=== PATIENT | female | born 1950 | race Caucasian/White ===

== ENCOUNTER 2016-06-17 11:52 | Day surgery (SDC) | payer OTHER ==
--- NOTE | ~2016-06-17 | EGD ---
EGD REPORT [facility] [address] [address] NAME: MELL RETANA : [birth year] STATUS : [facility]#: [id number] AGE: 66 ADM/REG DATE : 06/17/16 MR#: [id number] REPORT SERV DATE: 06/17/16 DICTATED BY: LEONEL QUILES DATE: 06/17/16 REPORT STATUS : Draft TRANSCRIBED BY: [facility] DATE: 06/17/16 Pulmonology Patient Name: Mell Retana Procedure Date: 06/17/2016 3:36 PM Date of : 1950 Attending MD: PARTH QUILES MD Procedure Date No Time: 06/17/2016 Procedure: Rigid Bronchoscopy Indications: Stent removal Providers: PARTH QUILES MD Referring MD: ISAURA GRAVES MD Medicines: Lidocaine 2% 20 mL Complications: No immediate complications Procedure: Pre-Anesthesia Assessment: - ASA Grade Assessment: IV - A patient with severe systemic disease that is a constant threat to life. - A History and Physical has been performed. Patient meds and allergies have been reviewed. The risks and benefits of the procedure and the sedation options and risks were discussed with the patient. All questions were answered and informed consent was obtained. Patient identification and proposed procedure were verified prior to the procedure by the physician and the nurse in the pre-procedure area in the procedure room. Mental Status Examination: alert and oriented. Airway Examination: normal oropharyngeal airway. Respiratory Examination: clear to auscultation. CV Examination: normal and RRR, no murmurs, no S3 or S4. ASA Grade Assessment: III - A patient with severe systemic disease. After reviewing the risks and benefits, the patient was deemed in satisfactory condition to undergo the procedure. The anesthesia plan was to use general anesthesia. Immediately prior to administration of medications, the patient was re-assessed for adequacy to receive sedatives. The heart rate, respiratory rate, oxygen saturations, blood pressure, adequacy of pulmonary ventilation, and response to care were monitored throughout the procedure. The physical status of the patient was re-assessed after the procedure. After obtaining informed consent, the Bronchoscope was introduced through the mouth, via the endotracheal tube (the patient was intubated for the procedure) and advanced to the tracheobronchial tree. The procedure was accomplished without difficulty. The patient tolerated the procedure well. The procedure was EGD REPORT [address] [address] NAME: MELL RETANA : [birth year] STATUS : REG [facility]#: [id number] AGE: 66 ADM/REG DATE : 06/17/16 MR#: [id number] REPORT SERV DATE: 06/17/16 DICTATED BY: LEONEL QUILES DATE: 06/17/16 REPORT STATUS : Draft TRANSCRIBED BY: [employer] DATE: 06/17/16 accomplished with ease. Findings: The endotracheal tube is in good position. The visualized portion of the trachea is of normal caliber. The minerva is sharp. The tracheobronchial tree was examined to at least the first subsegmental level. Bronchial mucosa and anatomy are normal; there are no endobronchial lesions, and no secretions. Stent is visualized in the proximal portion of the LMS and distal trachea. The 12 mm Rigid bronchoscope was then intubated in the usual atraumatic fashion. Using the white handle forcep, the hybrid stent was extracted. Residual non obstructive granulation was seen. Impression: LMS stent removed Recommendation: - Patient can discontinue mandatory nebulizers and use them PRN - Chest X-ray post-procedure. Attending Participation: I personally performed the entire procedure. PARTH QUILES MD 06/17/2016 4:00 PM This report has been signed electronically. Number of Addenda: 0 Note Initiated On: 06/17/2016 3:36 PM [address] [address]
--- NOTE | ~2016-06-17 | CN ---
Consultation Report [facility] [id number] [place]. [address] NAME: MELL RETANA : [birth year] STATUS : [facility] PAT#: [id number] AGE: 66 ADM/REG DATE : 06/17/16 MR#: [id number] REPORT SERV DATE: 06/17/16 DICTATED BY: CHARLENE QUILES DATE: 06/17/16 REPORT STATUS : Draft TRANSCRIBED BY: [employer] DATE: 06/17/16 CONSULTATION DATE OF CONSULTATION: Dear Dr. Sam Hawkins: Thank you for requesting my opinion regarding evaluation and management of Ms Mell Retana's left-sided stent and lung cancer. Ms Retana is an extremely pleasant, elderly female with a significant past medical history of SLL, CLL, and lung cancer status post chemo and radiation therapy, who represented to [facility] for surveillance imaging. CT imaging on 06/05/2016 confirmed significant interval decrease in tumor volume within the mediastinum and medial aspect of the superior segment of the left lower lobe when correlated with prior examination. Left-sided mainstem bronchus is in unchanged position. The patient states that her shortness of breath has significantly improved. She has been able to tolerate the breathing treatments and is anxious for stent removal. She denies any fevers, chills, night sweats, nausea, vomiting, diarrhea, or constipation. REVIEW OF SYSTEMS: A detailed 14-point review of systems was completed. Pertinent positives and negatives are listed above. PAST MEDICAL HISTORY: 1. COPD. 2. Depression. 3. Diabetes. 4. GERD. 5. Hyperlipidemia. 6. Hypertension. 7. Osteoarthritis. 8. Parkinson disease. 9. Pneumonia. PAST SURGICAL HISTORY: 1. Colonoscopy. 2. Excision of melanoma on the abdominal wall. 3. Metastasectomy. SOCIAL HISTORY: The patient is single and disabled. She quit smoking 14 years ago, but has smoked one pack per day for 30 years. She denies any history of alcohol or illicit drug abuse. FAMILY HISTORY: Hypertension, osteoarthritis, Parkinson's, and cancer. Consultation Report [place] [id number] [place]. [address] NAME: MELL RETANA : [birth year] STATUS : [facility] PAT#: [id number] AGE: 66 ADM/REG DATE : 06/17/16 MR#: [id number] REPORT SERV DATE: 06/17/16 DICTATED BY: ETTAPARTHAARON DATE: 06/17/16 REPORT STATUS : Draft TRANSCRIBED BY: AINSLEY DATE: 06/17/16 PHYSICAL EXAMINATION: VITAL SIGNS: Reviewed and located in the paper chart. GENERAL: No acute distress. Able to communicate in full paragraphs at a time. HEENT: Normocephalic and atraumatic. Pupils are equal, round, and reactive to light and accommodation. Posterior oropharynx is clear. NECK: No JVD. No LAD. Trachea midline. CARDIOVASCULAR: Regular rate and rhythm. S1 and S2 present. LUNGS: Diminished breath sounds bilaterally. ABDOMEN: Nontender, nondistended. Soft. Positive bowel sounds. EXTREMITIES: No clubbing, cyanosis, or edema. SKIN: No new rashes, lesions, or ulcers. PSYCHIATRIC: Alert and oriented x3. Appropriate mood and affect. Appropriate insight and judgment. NEUROLOGIC: 5/5 strength in upper and lower extremities. Cranial nerves 2 through 12 intact. Gait not tested. DTRs not performed. IMAGING DATA: CT scan performed on 06/05/2016 has been personally reviewed by me, and I agree with the following interpretation. Significant decrease in tumor volume in the mediastinum and the medial aspect of the superior segment of the left lower lobe with no new lesion identified. 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 The patient represents for stent removal. At this point, Ms Retana would benefit from stent removal given her dramatic improvement in her lung cancer. The patient is aware that stent removal is associated with potential life- threatening complications including lung collapse, respiratory failure, and even ; with rigid bronchoscopy, injury to the mouth, lips, teeth, posterior oropharynx, vocal cords, airway tear, C-spine injury, or potential complications. Additional risks include the fact that she received radiation therapy, although most stents do not adhere to the airway wall, this is certainly possible. RECOMMENDATIONS: A summary of my recommendations are as follows: 1. Proceed with flexible rigid bronchoscopy with airway stent removal. 2. Follow up with Dr. Castle. Thank you for allowing me to participate in Ms Retana's care. KB/MODL Consultation Report [facility] [address] [place]. [address] NAME: MELL RETANA : [birth year] STATUS : [facility]#: [id number] AGE: 66 ADM/REG DATE : 06/17/16 MR#: [id number] REPORT SERV DATE: 06/17/16 DICTATED BY: CHARLENE QUILES DATE: 06/17/16 REPORT STATUS : Draft TRANSCRIBED BY: [employer] DATE: 06/17/16 Charlene Quiles M.D. / [id number] CC: Sendy Rankin CRYSTAL
[~2016-06-17 11:52] MED LIST: *DENIES; ABILIFY5 PO; ADVAIR INH; ADVAIR100 INH; ADVAIR230P INH; ALBUTEROL5 INH; AQUASOL E50 UNT/ML PO; ASAB PO; AUG875 PO; BREO ELLIPTA 21 EACH INH; CARDCD300 PO; CRESTOR10 PO; CRESTOR40 MG PO; EFFEXOR XR150 MG PO; FISH-EPA1000 MG PO; FLORASTOR250 MG PO; FORTAMET500 MG PO; GGDM5ML PO; GLUCPH PO; INCRUSE ELLI62.5 MCG INH; LEVAQUIN750 MG PO; LORT7 PO; LORTAB 5 PO; M-END MAX D LI473 ML PO; METHOC500B PO; MUCO10%4ML INH; MUCO20%4ML; NASONEX NAS; NEUR300 PO; NOLV10 PO; NORCO1 TA2 PO; PARC25-100 PO; PR25 PO; PRILO PO; PRIN20 PO; PROAIR HFA INH; PROVENTSOL INH; PROZAC40 MG PO; RESTASIS OPH; ROBITUSS23 PO; SIN25 PO; SINGULAIR1 PO; SPIRIVA INH; STERAPRED DS10 MG; THEO-24400 MG PO; VENTOLIN HFA INH; ZANTAC150 MG PO; ZOCOR40 PO
[2016-06-17 13:43] LABS: BASOPHILS 0.2 %; BASOPHILS ABSOLUTE 0.01 10/3/uL (0.0-0.16); EOSINOPHILS 1.9 %; HEMOGLOBIN 12.1 g/dL (12.0-16.0); IMMATURE GRANULOCYTES 0.4 %; IMMATURE GRANULOCYTES ABSOLUTE 0.02 10/3/uL (0.0-0.11); LYMPHOCYTES 18.3 %; LYMPHOCYTES ABSOLUTE 0.97 10/3/uL (0.67-4.30); MANUAL DIFF NO %; MEAN CORPUS HGB CONC 34.6 g/dL (32.0-36.0); MEAN CORPUSCULAR HEMOGLOB 30.3 pg (26.0-34.0); MEAN CORPUSCULAR VOLUME 87.7 fL (80-100); MEAN PLATELET VOLUME 8.2 fL (9.2-13.0); MONOCYTES 8.5 %; MONOCYTES ABSOLUTE 0.45 10/3/uL (0.21-1.20); NEUTROPHILS 70.7 %; NEUTROPHILS ABSOLUTE 3.74 10/3/uL (2.02-8.40); PLATELET COUNT 126 10/3/uL (150-400); RBC DISTRIBUTION WIDTH 13.7 % (12.0-16.0); RED CELL COUNT 3.99 10/6/uL (4.0-5.6); WHITE BLOOD CELLS 5.3 10/3/uL (4.5-10.5)
[2016-06-17 13:50] LABS: INTERNATIONAL NORMAL RATI 1.1 UNITS (-); PROTIME (NOT ORD) 13.7 SEC (12.0-14.5)
[2016-06-17 13:55] LABS: CALCIUM, SERUM 9.5 MG/DL (8.5-10.4); CHLORIDE, SERUM 107 MMOL/L (96-112); CO2 (CARBON DIOXIDE) 26 MMOL/L (24-34); CREATININE 0.93 MG/DL (0.55-1.02); GFR AFRICAN AMERICAN 75 ML/MIN (>=60); GFR NON AFRICAN AMERICAN 64 ML/MIN (>=60); POTASSIUM, SERUM 3.8 MMOL/L (3.5-5.3); SODIUM, SERUM 143 MMOL/L (135-148)
[2016-06-17 13:56] LABS: BUN (BLOOD UREA NITROGEN) 22 MG/DL (6-23); GLUCOSE, SERUM 104 MG/DL (60-99); PARTIAL THROMBO TIME 134.1 SEC (22.5-37.2)
== END 2016-06-17 18:32 | disposition home or self-care (01) ==
LOC: DMU 11:52
PROVIDERS: Anesthesiology; Internal Medicine
PROC: 0BC18ZZ Extirpation of Matter from Trachea, Via Natural or Artificial Opening Endoscopic (ICD-10-PCS; principal; 2016-06-17 11:30)
DX: Z45.89 Encounter for adjustment and management of other implanted devices (principal); Z85.118 Personal history of other malignant neoplasm of bronchus and lung; Z85.72 Personal history of non-Hodgkin lymphomas; Z85.828 Personal history of other malignant neoplasm of skin; Z85.820 Personal history of malignant melanoma of skin; Z85.028 Personal history of other malignant neoplasm of stomach; Z92.21 Personal history of antineoplastic chemotherapy; Z92.3 Personal history of irradiation; E11.9 Type 2 diabetes mellitus without complications; F32.9 Major depressive disorder, single episode, unspecified; Z90.11 Acquired absence of right breast and nipple; M19.90 Unspecified osteoarthritis, unspecified site; M81.0 Age-related osteoporosis without current pathological fracture; J44.9 Chronic obstructive pulmonary disease, unspecified; G47.30 Sleep apnea, unspecified; Z87.01 Personal history of pneumonia (recurrent); I49.9 Cardiac arrhythmia, unspecified; G25.81 Restless legs syndrome; H91.90 Unspecified hearing loss, unspecified ear; Z90.89 Acquired absence of other organs; I10 Essential (primary) hypertension; E78.00 Pure hypercholesterolemia, unspecified; Z91.048 Other nonmedicinal substance allergy status
CPT/HCPCS: 71010; 80048; 82962; 85025; 85610; 85730; 93005; A9270-GY; J2250; J2370; J2405; J2710; J3010